=== PATIENT | male | born 1975 | race African-American/Black ===

== ENCOUNTER 2018-04-03 15:06 | Emergency (ER) | payer MEDICARE, OTHER ==
[~2018-04-03] VITALS: Ht 180.3 cm; Wt 81.6 kg
[~2018-04-03 15:06] MED LIST: DIVA125T12 PO
[2018-04-03 15:45] LABS: Basophils # (auto) 0.1 uL; Basophils % (auto) 0.9 % (0.0-2.0); Eosinophils # (auto) 0 uL; Eosinophils % (auto) 0.1 % (0.0-7.0); Hematocrit 43.7 % (41.0-53.0); Hemoglobin 14.6 g/dL (13.5-17.5); Lymphocytes # (auto) 1.8 uL; Lymphocytes % (auto) 29.2 % (10.0-50.0); Mean Corpuscular Hemoglobin 31.8 pg (28.0-32.0); Mean Corpuscular Hgb Conc. 33.3 g/dL (32.0-36.0); Mean Corpuscular Volume 95.5 fL (80.0-100.0); Monocytes # (auto) 0.5 uL; Monocytes % (auto) 7.7 % (0.0-12.0); Neutrophils # (auto) 3.9 uL; Neutrophils % (auto) 62.1 % (37.0-80.0); Platelet Count (auto) 281 10^3/uL (140-450); Red Blood Cells 4.58 10^6/uL (4.5-5.90); Red Cell Distribution Width 15.3 % (11.8-14.3); White Blood Cell 6.3 10^3/uL (4.4-10.8)
[2018-04-03 16:01] LABS: Anion Gap 10 (5-15); BUN/Creatinine Ratio 10.4; Blood Alcohol < 3.0 mg/dL (0-5); Blood Urea Nitrogen 10 mg/dL (7-18); Calcium 9.1 mg/dL (8.5-10.1); Carbon Dioxide 25 mmol/L (21-32); Chloride 105 mmol/L (98-107); GFR African American 110 mL/min; GFR Non-African American 91 mL/min; Glucose 92 mg/dL (74-106); Potassium 3.8 mmol/L (3.5-5.1); Salicylate 3.9 mg/dL (2.8-20.0); Sodium 140 mmol/L (136-145)
[2018-04-03 16:02] LABS: Acetaminophen < 2.0 ug/mL (10-30)
[2018-04-03 22:36] LABS: Basophils # (auto) 0 uL; Basophils % (auto) 0.7 % (0.0-2.0); Eosinophils # (auto) 0.1 uL; Eosinophils % (auto) 1.6 % (0.0-7.0); Hematocrit 38.9 % (41.0-53.0); Lymphocytes # (auto) 2.4 uL; Lymphocytes % (auto) 38.2 % (10.0-50.0); Mean Corpuscular Hemoglobin 31.6 pg (28.0-32.0); Mean Corpuscular Hgb Conc. 33.3 g/dL (32.0-36.0); Mean Corpuscular Volume 94.7 fL (80.0-100.0); Monocytes # (auto) 0.6 uL; Monocytes % (auto) 9.3 % (0.0-12.0); Neutrophils # (auto) 3.2 uL; Neutrophils % (auto) 50.2 % (37.0-80.0); Nucleated Red Blood Cells % 0.1 %; Platelet Count (auto) 253 10^3/uL (140-450); Red Blood Cells 4.11 10^6/uL (4.5-5.90); Red Cell Distribution Width 15.4 % (11.8-14.3); White Blood Cell 6.4 10^3/uL (4.4-10.8)
[2018-04-03 22:46] LABS: Albumin 3.7 g/dL (3.4-5.0); BUN/Creatinine Ratio 11.8; Calcium 8.6 mg/dL (8.5-10.1); Potassium 3.7 mmol/L (3.5-5.1)
[2018-04-03 23:18] LABS: Bilirubin, Total 0.4 mg/dL (0.2-1.0); Total Protein 7.2 g/dL (6.4-8.2)
[2018-04-04 08:13] LABS: Urine Bacteria FEW /hpf (None Seen); Urine Blood Negative /uL (Negative); Urine Mucus FEW (None Seen); Urine Specific Gravity 1.017 (1.001-1.035); Urine Sperm PRESENT /hpf (None Seen); Urine WBC 3 /hpf (0 - 3)
[2018-04-04 08:22] LABS: Alcohol, Urine < 3.0 mg/dL (0-5); Amphetamine Screen, Urine POSITIVE (NEGATIVE); Barbiturate Scree,Urine NEGATIVE (NEGATIVE); Benzodiazephine Screen, Urine NEGATIVE (NEGATIVE); Cannabinoid Screen, Urine NEGATIVE (NEGATIVE); Cocaine Screen, Urine NEGATIVE (NEGATIVE); Opiate Scree,Urine NEGATIVE (NEGATIVE); Phencyclidine Screen, Urine NEGATIVE (NEGATIVE)
[2018-04-04] MEDS ORDERED: QUEtiapine FUMARATE 100 MG TAB PO ONE (08:45)
[2018-04-04 22:40] VITALS: BP 113/79
== END 2018-04-04 22:57 | disposition home or self-care (01) ==
LOC: EDBD 15:06 → ER 15:06
DX: F29 Unspecified psychosis not due to a substance or known physiological condition (principal); F31.9 Bipolar disorder, unspecified; F17.200 Nicotine dependence, unspecified, uncomplicated; F15.10 Other stimulant abuse, uncomplicated
CPT/HCPCS: 36415; 72100; 80048; 80053; 80164; 80307; 80320; 80329; 81001; 85025

== ENCOUNTER 2018-05-10 21:40 | Emergency (ER) | payer MEDICARE, MEDICAID ==
[~2018-05-10] VITALS: Ht 172.7 cm; Wt 68.0 kg
[2018-05-11 06:33] VITALS: BP 128/88
== END 2018-05-11 07:34 | disposition home or self-care (01) ==
LOC: EDBD 21:40 → ER 21:47
DX: S93.402A Sprain of unspecified ligament of left ankle, initial encounter (principal); F17.210 Nicotine dependence, cigarettes, uncomplicated; F15.10 Other stimulant abuse, uncomplicated; Z59.0 Homelessness; X58.XXXA Exposure to other specified factors, initial encounter; Y93.01 Activity, walking, marching and hiking; Y92.89 Other specified places as the place of occurrence of the external cause; Y99.8 Other external cause status

== ENCOUNTER 2018-05-11 16:47 | Observation (INO) | payer MEDICARE, MEDICAID ==
[~2018-05-11] VITALS: Ht 180.3 cm; Wt 81.6 kg
[2018-05-11 18:38] LABS: Basophils # (auto) 0 uL; Basophils % (auto) 0.3 % (0.0-2.0); Eosinophils # (auto) 0.2 uL; Eosinophils % (auto) 2.7 % (0.0-7.0); Hematocrit 42.9 % (41.0-53.0); Hemoglobin 14.2 g/dL (13.5-17.5); Lymphocytes # (auto) 1.7 uL; Lymphocytes % (auto) 22.4 % (10.0-50.0); Mean Corpuscular Hgb Conc. 33.2 g/dL (32.0-36.0); Mean Corpuscular Volume 96.2 fL (80.0-100.0); Monocytes # (auto) 0.5 uL; Monocytes % (auto) 6.3 % (0.0-12.0); Neutrophils # (auto) 5.2 uL; Neutrophils % (auto) 68.3 % (37.0-80.0); Nucleated Red Blood Cells % 0.1 %; Platelet Count (auto) 245 10^3/uL (140-450); Red Blood Cells 4.46 10^6/uL (4.5-5.90); Red Cell Distribution Width 14.4 % (11.8-14.3); White Blood Cell 7.6 10^3/uL (4.4-10.8)
[2018-05-11 18:54] LABS: Anion Gap 6 (5-15); BUN/Creatinine Ratio 11.7; Blood Alcohol < 3.0 mg/dL (0-5); Blood Urea Nitrogen 9 mg/dL (7-18); Calcium 8.2 mg/dL (8.5-10.1); Carbon Dioxide 26 mmol/L (21-32); Chloride 108 mmol/L (98-107); GFR African American 142 mL/min; GFR Non-African American 118 mL/min; Glucose 136 mg/dL (74-106); Potassium 3.2 mmol/L (3.5-5.1); Sodium 140 mmol/L (136-145)
[2018-05-11] MEDS ORDERED: POTASSIUM CHL 20 Meq TABLET PO ONE (20:30)
[2018-05-11 21:19] LABS: Alcohol, Urine < 3.0 mg/dL (0-5); Amphetamine Screen, Urine POSITIVE (NEGATIVE); Barbiturate Scree,Urine NEGATIVE (NEGATIVE); Benzodiazephine Screen, Urine NEGATIVE (NEGATIVE); Cannabinoid Screen, Urine NEGATIVE (NEGATIVE); Cocaine Screen, Urine NEGATIVE (NEGATIVE); Opiate Scree,Urine NEGATIVE (NEGATIVE); Phencyclidine Screen, Urine NEGATIVE (NEGATIVE)
[2018-05-12 00:20] VITALS: BP 133/84
== END 2018-05-12 01:43 | disposition home or self-care (01) | DRG 885 ==
LOC: ER 16:47 → EDBD 16:47 → OVERFLOW 16:48 → ER 05-12 01:41
PROVIDERS: ADMIT Emergency Medicine; ATTEND Emergency Medicine
DX: F31.9 Bipolar disorder, unspecified (principal); F17.210 Nicotine dependence, cigarettes, uncomplicated; F12.10 Cannabis abuse, uncomplicated; F15.10 Other stimulant abuse, uncomplicated; Z59.0 Homelessness
CPT/HCPCS: 36415; 80048; 80307; 80320; 85025; 99285; G0378

== ENCOUNTER 2018-05-12 20:06 | Emergency (ER) | payer MEDICARE, MEDICAID ==
[~2018-05-12] VITALS: Ht 175.3 cm; Wt 81.6 kg
[2018-05-12 20:15] VITALS: BP 144/86
== END 2018-05-13 05:52 | disposition home or self-care (01) ==
LOC: ER 20:06 → EDBD 20:06 → ER 05-13 05:52
DX: J45.901 Unspecified asthma with (acute) exacerbation (principal); F17.210 Nicotine dependence, cigarettes, uncomplicated; Z76.0 Encounter for issue of repeat prescription; Z59.0 Homelessness

== ENCOUNTER → 2018-05-13 | Emergency (ER) | payer MEDICARE, MEDICAID | END | disposition left against medical advice (07) | LOC: ER 05:33 | DX: Z76.0 Encounter for issue of repeat prescription (principal); Z53.21 Procedure and treatment not carried out due to patient leaving prior to being seen by health care provider ==

== ENCOUNTER 2018-06-01 16:05 | Inpatient (IN) | payer MEDICARE, MEDICAID ==
[~2018-06-01] VITALS: Ht 177.8 cm; Wt 70.4 kg
[2018-06-01] MEDS ORDERED: SODIUM CHLORIDE 0.9% 1,000 ML IVB ONE ×2 (16:26→17:33)
[2018-06-01 16:29] LABS: Basophils # (auto) 0 uL; Basophils % (auto) 0.7 % (0.0-2.0); Eosinophils # (auto) 0.3 uL; Eosinophils % (auto) 3.7 % (0.0-7.0); Hematocrit 42.3 % (41.0-53.0); Hemoglobin 14.3 g/dL (13.5-17.5); Lymphocytes # (auto) 3.2 uL; Lymphocytes % (auto) 46.2 % (10.0-50.0); Mean Corpuscular Hemoglobin 32.1 pg (28.0-32.0); Mean Corpuscular Hgb Conc. 33.7 g/dL (32.0-36.0); Monocytes # (auto) 0.4 uL; Monocytes % (auto) 6.4 % (0.0-12.0); Neutrophils # (auto) 2.9 uL; Nucleated Red Blood Cells % 0.1 %; Platelet Count (auto) 268 10^3/uL (140-450); Red Blood Cells 4.46 10^6/uL (4.5-5.90); White Blood Cell 6.8 10^3/uL (4.4-10.8)
[2018-06-01 16:46] LABS: INR 0.97 (0.9-1.15); Partial Thromboplastin Time 25.9 sec (23.78-33.04); Prothrombin Time 10.4 sec (9.27-12.13)
[2018-06-01 16:56] LABS: Magnesium 2.2 mg/dL (1.6-2.6)
[2018-06-01 16:58] LABS: Albumin 3.4 g/dL (3.4-5.0); BUN/Creatinine Ratio 12.2; Calcium 8.5 mg/dL (8.5-10.1)
[2018-06-01 17:05] LABS: Bilirubin, Total 0.2 mg/dL (0.2-1.0); Potassium 3.6 mmol/L (3.5-5.1); Total Protein 7.4 g/dL (6.4-8.2)
[2018-06-01] MEDS ORDERED: POTASSIUM EFFERVESENT TAB 25 MEQ PO ONE (17:15)
[2018-06-01] MEDS ORDERED: MORPHINE SULFATE 4 MG/ML SYR/VIAL IV ONE (17:45)
[2018-06-01] MEDS ORDERED: PROMETHAZINE HCL 25 MG/ML 1ML IV PRN (17:45)
[2018-06-01] MEDS ORDERED: IOHEXOL 300 MG/ML 100ML BOTTLE IJ ONE (19:18)
[2018-06-01 19:33] LABS: Urine WBC None Seen /hpf (0 - 3)
[2018-06-01 20:02] LABS: Urine Bacteria NONE SEEN /hpf (None Seen); Urine Blood Negative /uL (Negative); Urine Mucus FEW (None Seen); Urine Specific Gravity 1.003 (1.001-1.035)
[2018-06-02] VITALS (7 sets, daily range): BP systolic 127–137; BP diastolic 69–91
[2018-06-02] MEDS ORDERED: ACETAMINOPHEN 500 MG TAB PO PRN
[2018-06-02] MEDS ORDERED: MORPHINE SULFATE 4 MG/ML SYR/VIAL IV PRN
[2018-06-02] MEDS ORDERED: ONDANSETRON HCL 4 MG/2 ML VIAL IV PRN
[2018-06-02 00:36] LABS: Alcohol, Urine < 3.0 mg/dL (0-5); Amphetamine Screen, Urine NEGATIVE (NEGATIVE); Barbiturate Scree,Urine NEGATIVE (NEGATIVE); Benzodiazephine Screen, Urine NEGATIVE (NEGATIVE); Cannabinoid Screen, Urine NEGATIVE (NEGATIVE); Cocaine Screen, Urine NEGATIVE (NEGATIVE); Opiate Scree,Urine NEGATIVE (NEGATIVE); Phencyclidine Screen, Urine NEGATIVE (NEGATIVE)
[2018-06-02 04:49] LABS: Basophils # (auto) 0 uL; Basophils % (auto) 0.8 % (0.0-2.0); Eosinophils # (auto) 0.2 uL; Eosinophils % (auto) 3.9 % (0.0-7.0); Hematocrit 41.7 % (41.0-53.0); Hemoglobin 13.9 g/dL (13.5-17.5); Lymphocytes # (auto) 2.9 uL; Lymphocytes % (auto) 54.4 % (10.0-50.0); Mean Corpuscular Hemoglobin 31.7 pg (28.0-32.0); Mean Corpuscular Hgb Conc. 33.4 g/dL (32.0-36.0); Monocytes # (auto) 0.3 uL; Monocytes % (auto) 6.2 % (0.0-12.0); Neutrophils # (auto) 1.8 uL; Neutrophils % (auto) 34.7 % (37.0-80.0); Platelet Count (auto) 256 10^3/uL (140-450); Red Blood Cells 4.38 10^6/uL (4.5-5.90); Red Cell Distribution Width 14.1 % (11.8-14.3); White Blood Cell 5.3 10^3/uL (4.4-10.8)
[2018-06-02 05:08] LABS: BUN/Creatinine Ratio 11.4; Calcium 8.2 mg/dL (8.5-10.1); Potassium 3.7 mmol/L (3.5-5.1)
[2018-06-02 05:11] LABS: Bilirubin, Total 0.3 mg/dL (0.2-1.0); Total Protein 6.7 g/dL (6.4-8.2)
[2018-06-02] MEDS: metroNIDAZOLE 500MG/100ML 100 ML IV SCH ×3 (06:00→21:45)
[2018-06-02] MEDS: cefTRIAXone 1GM/10ml IVPUSH 10 ML IV SCH (10:58)
[2018-06-02] MEDS ORDERED: NICOTINE 14 MG/24HR TOPICAL PATCH TD ONE (13:00)
[2018-06-02] MEDS: SODIUM CHLORIDE 0.9% 1,000 ML IV SCH ×2 (13:20)
[2018-06-02] MEDS: QUEtiapine FUMARATE 100 MG TAB PO SCH (21:46)
[2018-06-02] MEDS: HYDROcodone-ACET 5/325MG TAB PO PRN (21:46)
[2018-06-03] MEDS: SODIUM CHLORIDE 0.9% 1,000 ML IV SCH ×2 (02:40→16:00)
[2018-06-03 05:00] VITALS: BP 123/80
[2018-06-03] MEDS: metroNIDAZOLE 500MG/100ML 100 ML IV SCH ×3 (05:08→22:20)
[2018-06-03] MEDS: HYDROcodone-ACET 5/325MG TAB PO PRN ×2 (05:08→22:21)
[2018-06-03 08:45] VITALS: BP 123/84
[2018-06-03] MEDS: cefTRIAXone 1GM/10ml IVPUSH 10 ML IV SCH (09:43)
[2018-06-03] MEDS ORDERED: NICOTINE 14 MG/24HR TOPICAL PATCH TD SCH (10:00)
[2018-06-03 12:30] VITALS: BP 135/77
[2018-06-03 16:01] VITALS: BP 140/83
[2018-06-03 22:00] VITALS: BP 136/89
[2018-06-03] MEDS: QUEtiapine FUMARATE 100 MG TAB PO SCH (22:21)
[2018-06-04 05:00] VITALS: BP 120/75
[2018-06-04] MEDS: SODIUM CHLORIDE 0.9% 1,000 ML IV SCH (05:20)
[2018-06-04] MEDS: metroNIDAZOLE 500MG/100ML 100 ML IV SCH (06:00)
== END 2018-06-04 08:30 | disposition left against medical advice (07) | DRG 439 ==
LOC: EDBD 16:05 → ER 16:05 → OVERFLOW 16:06 → WEST WING 06-02 00:48
PROVIDERS: ADMIT Nurse Practitioner Family; ATTEND Family Medicine
DX: K85.90 Acute pancreatitis without necrosis or infection, unspecified (principal); E44.0 Moderate protein-calorie malnutrition; F20.9 Schizophrenia, unspecified; I10 Essential (primary) hypertension; F17.210 Nicotine dependence, cigarettes, uncomplicated; I70.0 Atherosclerosis of aorta; Z53.21 Procedure and treatment not carried out due to patient leaving prior to being seen by health care provider; F31.9 Bipolar disorder, unspecified; F41.9 Anxiety disorder, unspecified; Z59.0 Homelessness; Z68.22 Body mass index [BMI] 22.0-22.9, adult
CPT/HCPCS: 36415; 71046; 74177; 76705; 80053; 80164; 80178; 80307; 81001; 82150; 83690; 83735; 84443; 85025; 85610; 85730; 93005; 96361; 96374; 96375; J0696; J3490

== ENCOUNTER 2018-06-05 10:39 | Emergency (ER) | payer MEDICARE, MEDICAID ==
[~2018-06-05] VITALS: Ht 180.3 cm; Wt 81.6 kg
[2018-06-05 10:43] VITALS: BP 139/82
== END 2018-06-05 15:28 | disposition left against medical advice (07) ==
LOC: EDBD 10:39 → ER 10:39
DX: R10.9 Unspecified abdominal pain (principal); R11.0 Nausea; Z53.21 Procedure and treatment not carried out due to patient leaving prior to being seen by health care provider